=== PATIENT | male | born 1990 ===

== ENCOUNTER → 2025-04-12 | Outpatient (CLI) | payer OTHER ==
--- NOTE | 2025-04-12 13:48 | HMCIMG ---
CT ABD/PEL WO CON RENAL/APPY HISTORY: Abdominal pain COMPARISON: None TECHNIQUE: Multiple sequential axial images of the abdomen and pelvis were obtained from the dome of the diaphragm through symphysis pubis. Patient was not given contrast through intravenous route. Oral contrast was not given. FINDINGS: No pleural effusion is seen bilaterally. There is no evidence of parenchymal disease or pulmonary nodule of the visualized lower lungs. Degenerative changes of the thoracolumbar spine are present. The heart is not enlarged. Liver measured 20 cm. The liver, spleen, adrenal glands and pancreas are unremarkable. There is no evidence of hydronephrosis bilaterally. No evidence of renal stone is seen. Fecal material is seen in the colon. There are normal size retroperitoneal and mesenteric lymph nodes. No ascites is seen. No definite CT evidence of acute sinusitis is seen. Clinical correlation is recommended. Pelvic sidewalls are symmetric bilaterally. The bladder is poorly distended. IMPRESSION: 1. No acute findings. CT was performed with one or more following dose reduction techniques: automated exposure control, adjustment of the mA and kv according to patient's size, or use of a iterative reconstruction technique.
== END | disposition home or self-care (01) ==
LOC: RAH 10:09 → EEVIPCON 10:09
PROVIDERS: ATTEND Family Medicine
DX: K56.41 Fecal impaction (principal); N32.89 Other specified disorders of bladder; M47.815 Spondylosis without myelopathy or radiculopathy, thoracolumbar region; J00 Acute nasopharyngitis [common cold]; E66.3 Overweight; R31.9 Hematuria, unspecified; R30.0 Dysuria; R10.9 Unspecified abdominal pain; F43.23 Adjustment disorder with mixed anxiety and depressed mood; F43.10 Post-traumatic stress disorder, unspecified; F43.22 Adjustment disorder with anxiety
CPT/HCPCS: 74176

== ENCOUNTER → 2025-06-06 | Outpatient (CLI) | payer OTHER ==
[~2025-06-06] MED LIST: IOHEXOL 350 MG/ML 100ML INFUS..BTL IV ONE
--- NOTE | 2025-06-07 04:48 | HMCIMG ---
EXAM: CT Abdomen and Pelvis without and with IV contrast CLINICAL HISTORY: Unspecified hematuria. TECHNIQUE: Pre and post-contrast thin collimated axial CT images of the abdomen and pelvis were obtained, with sagittal and coronal reformatted images also submitted. CT scan is done according to ALARA (As Low As Reasonably Achievable). COMPARISON: CT abdomen and pelvis dated 04/12/2025. FINDINGS: Unremarkable visualized lung parenchyma. There is no focal abnormality appreciated within the liver, gallbladder, pancreas, spleen, adrenals, or kidneys. The bilateral kidneys are normal in size, shape, and contour. No renal, ureteral, or bladder calculus. No solid or cystic renal mass. Normal CT nephrogram. There is no obvious bowel wall thickening. Bowel loops are normal in caliber without evidence of obstruction or ileus. The appendix is normal. A component of mild constipation is present in the colon. There is no abnormality within the urinary bladder. Unremarkable reproductive organs. Tiny, uncomplicated fat-containing right inguinal hernia. Abdominal and pelvic vessels are patent. No lymphadenopathy. No free fluid. No pneumoperitoneum. There is no acute osseous abnormality. IMPRESSIONS: No acute process in the abdomen or pelvis. Unremarkable kidneys. No gross interval changes. /Darling
== END | disposition home or self-care (01) ==
LOC: RAH 09:42 → EEVIPCON 09:42
PROVIDERS: ATTEND Family Medicine
DX: R31.9 Hematuria, unspecified (principal)
CPT/HCPCS: 74178; Q9967